=== PATIENT | male | born 1960 | race Caucasian/White ===

== ENCOUNTER 2020-12-16 23:04 | Emergency (ER) | payer MEDICAID ==
[~2020-12-16] VITALS: Ht 167.6 cm; Wt 84.1 kg
[2020-12-16] MEDS ORDERED: acetaminophen 325mg tablet PO STA (23:15)
[2020-12-17 01:14] VITALS: BP 135/111
== END 2020-12-17 01:41 | disposition home or self-care (01) ==
LOC: ER 23:05
DX: U07.1 COVID-19 (principal); R05 Cough
CPT/HCPCS: 71045; 87635; 99284; C9803

== ENCOUNTER 2020-12-20 04:30 | Inpatient (IN) | payer MEDICAID ==
[~2020-12-20] VITALS: Ht 165.1 cm; Wt 91.8 kg
[2020-12-20] MEDS ORDERED: ibuprofen 200mg tablet PO ONE (05:20)
[2020-12-20] MEDS ORDERED: dexamethasone sod phosphate 10mg/ml inj IV STA (05:53)
[2020-12-20 06:06] LABS: BASOPHILS % (AUTO) 0.4 % (0-1); EOSINOPHILS % (AUTO) 0.1 % (0-6); HEMATOCRIT 49.4 % (42.0-52.0); HEMOGLOBIN 17.1 g/dl (14.0-17.9); LYMPHOCYTES # (AUTO) 0.8 X10'3 (1.1-4.8); MEAN CORPUSCULAR HEMOGLOBIN 31.1 PG (27.0-31.0); MEAN CORPUSCULAR HGB CONC 34.7 g/dL (33.0-36.5); MEAN CORPUSCULAR VOLUME 89.8 FL (78-98); MEAN PLATELET VOLUME 10.6 FL (7.4-10.4); MONOCYTES # (AUTO) 0.5 X10'3 (0-0.9); MONOCYTES % (AUTO) 7.5 % (2-12); NEUTROPHILS # (AUTO) 5.4 X10'3 (1.8-7.7); PLATELET COUNT 135 X10'3 (140-440); RED CELL DISTRIBUTION WIDTH 14.1 % (11.5-14.5); WHITE BLOOD COUNT 6.8 X10'3 (4.5-11.0)
[2020-12-20 06:09] LABS: ALANINE AMINOTRANSFERASE 48 U/L (12-78); ALBUMIN 3.6 G/DL (3.4-5.0); ALBUMIN/GLOBULIN RATIO 0.8 (1.1-1.5); ALKALINE PHOSPHATASE 75 IU/L (46-116); ANION GAP 16 (8-16); ASPARTATE AMINO TRANSFERASE 117 U/L (10-37); BILIRUBIN,TOTAL 0.6 MG/DL (0.1-1.0); BLOOD UREA NITROGEN 47 MG/DL (7-18); BUN/CREATININE RATIO 17.7 (5.4-32.0); CALCIUM 8.1 MG/DL (8.5-10.1); CHLORIDE 101 MMOL/L (99-107); CREATININE 2.65 MG/DL (0.60-1.10); GLUCOSE 113 MG/DL (70-104); POTASSIUM 3.2 MMOL/L (3.5-5.1); SODIUM 138 MMOL/L (135-145); TOTAL CARBON DIOXIDE 21.3 MMOL/L (24-32); TOTAL PROTEIN 8.2 G/DL (6.4-8.2); eGFR 25 ML/MIN
[2020-12-20 06:13] LABS: TROPONIN I < 0.04 NG/ML (0.0-0.05)
[2020-12-20] MEDS ORDERED: normal saline 1000ml 1,000 ML IV ONE (06:15)
[2020-12-20 06:37] LABS: D-DIMER 0.54 MG/L FEU (0-0.50)
[2020-12-20] MEDS ORDERED: mag hydrox/Alum hydrox/simeth 30ml oral suspension PO PRN (07:20)
[2020-12-20] MEDS ORDERED: magnesium hydroxide 30ml (MOM) UD suspension PO PRN (07:20)
[2020-12-20] MEDS ORDERED: ondansetron/PF 4mg/2ml inj IV PRN (07:20)
[2020-12-20] MEDS ORDERED: acetaminophen 325mg tablet PO PRN (07:20)
[2020-12-20 07:52] LABS: C-REACTIVE PROTEIN 18.05 MG/DL (0.0-0.5); LACTATE DEHYDROGENASE 627 U/L (85-227)
[2020-12-20 07:58] LABS: LARGE PLATELETS FEW; PLATELET ESTIMATE DECREASED
[2020-12-20 08:05] LABS: FERRITIN 3230 NG/ML (26-388)
[2020-12-20] MEDS ORDERED: REMDESIVIR INJ 200 MG in normal saline 100ml IV soln 60 ML IV ONE (08:35)
[2020-12-20] MEDS: dexamethasone inj 6 MG in normal saline 50ml IV soln 50 ML IV SCH ×2 (09:10→20:39)
[2020-12-20] MEDS: normal saline 1000ml 1,000 ML IV SCH ×2 (09:10→20:39)
[2020-12-20] MEDS: enoxaparin 30mg/0.3ml syringe SQ SCH ×2 (09:11→20:38)
[2020-12-20] MEDS: docusate sod 100mg capsule PO SCH ×2 (09:12→20:38)
--- NOTE | 2020-12-20 10:30 | NUR ---
assumed care of pt from Yokasta VAN, pt is resting quietly on erlinda
--- NOTE | 2020-12-20 10:40 | NUR ---
PT BEING EVALUATED BY DR ZABALA
--- NOTE | 2020-12-20 11:00 | NUR ---
pt is resting quietly on bed, has urinal and water at bedside, resp even and unlabored, pt is on nasal cannula 2 liters, skin p/w/d, no chest pain/discomfort, waiting for bed assignment
--- NOTE | 2020-12-20 13:15 | NUR ---
pt sitting on edge of bed, using phone
--- NOTE | 2020-12-20 14:00 | NUR ---
pt resting quietly, resp even and unlabored, pulse ox 91% on 2 liters, increased to 4 liters
--- NOTE | 2020-12-20 14:57 | NUR ---
PT CONTINUES TO REST QUIETLY ON GURNEY, RESP EVEN AND UNLABORED, LUNGS CLEAR TO ASCULTATION BILATERALLY, SKIN P/W/D, TALKING FULL SENTENCES, PT ATE 90% OF LUNCH, AYUSH WELL, NO N/V, IV SITE IS PATENT AND CLEAR, USED URINAL, EMPTIED 200 ML OF YELLOW URINE
[2020-12-20] MEDS ORDERED: NO HOME MEDS (16:45)
--- NOTE | 2020-12-20 19:27 | NUR ---
pt is eating dinner, mamta well, no n/v
--- NOTE | 2020-12-20 20:00 | NUR ---
DR HOOPER AWARE PT IS ON 6LITERS NASAL CANNULA PULSE OX 89 TO 91%, SHE GAVE VERBAL ORDER FOR ABG
[2020-12-20 20:27] LABS: ABG BASE EXCESS -5.2 mmol/L (-2.0-2.0); ABG HCO3 16.9 mmol/L (22.0-26.0); ABG OXYGEN SATURATION 92.8 % (94-97); ABG PCO2 (T) 25.6 mmHg (35.0-48.0); ABG PO2 (T) 63.8 mmHg (75.0-100.0); ALLEN'S TEST POSITIVE; FCOHb 0.7 % (0.0-3.9); FLOW 6 L/min; FO2Hb 92.2 % (94-97)
--- NOTE | 2020-12-20 20:47 | NUR ---
pt continues to rest quietly on gurney, pt ate all the dinner, has water at bedside to drink, resp even and unlabored, skin p./w/d, talking full sentences, remains on 6 liters nasal cannula. IV is patent and clear
--- NOTE | 2020-12-20 23:50 | NUR ---
Received report from MOBILE EQUIPMENT OPERATORCARLOTA oHlly. Patient to follow shortly.
--- NOTE | 2020-12-21 00:30 | NUR ---
Patient arrived to unit from ER via W/C. Alert and oriented and in no apparent distress. Currently on 6 unit O2 via hi flow NC. Patient situated in bed and 2 RN skin check completed. Patient has no skin issues. Bed low/locked, SR x 2 and call light within reach.
[2020-12-21 00:40] VITALS: BP 130/79
[2020-12-21] MEDS: normal saline 1000ml 1,000 ML IV SCH ×2 (03:20→13:29)
[2020-12-21 05:00] VITALS: BP 104/29
--- NOTE | 2020-12-21 06:15 | NUR ---
Problems reprioritized. Patient report given, questions answered & plan of care reviewed with June VAN.
[2020-12-21 07:00] VITALS: BP 144/86
[2020-12-21] MEDS: docusate sod 100mg capsule PO SCH ×2 (07:43→20:48)
[2020-12-21] MEDS: dexamethasone inj 6 MG in normal saline 50ml IV soln 50 ML IV SCH ×2 (07:43→20:48)
[2020-12-21] MEDS: enoxaparin 30mg/0.3ml syringe SQ SCH ×2 (07:53→20:48)
[2020-12-21] MEDS: REMDESIVIR INJ 100 MG in normal saline 100ml IV soln 80 ML IV SCH (08:49)
--- NOTE | 2020-12-21 09:31 | NUR ---
Malnutrition consult: Pt admitted w/ +Covid and SOB. Per ED note, Pt has had decreased appetite but able to tolerated PO diet. No reported wt loss in EMR (current wt 88kg). No edema noted. Unable to perform NFPE d/t pt in isolation. Pt well developed and nourished per documentation. At this time pt does not meet minimum 2 criteria for malnutrition. Will continue to monitor. Addendum: 12/21/20 at [address] Amended: Links added.
[2020-12-21 09:56] LABS: BASOPHILS % (AUTO) 0.2 % (0-1); EOSINOPHILS % (AUTO) 0 % (0-6); HEMATOCRIT 43.4 % (42.0-52.0); HEMOGLOBIN 15.1 g/dl (14.0-17.9); LYMPHOCYTES # (AUTO) 0.5 X10'3 (1.1-4.8); MEAN CORPUSCULAR HEMOGLOBIN 30.6 PG (27.0-31.0); MEAN CORPUSCULAR HGB CONC 34.8 g/dL (33.0-36.5); MEAN CORPUSCULAR VOLUME 87.9 FL (78-98); MEAN PLATELET VOLUME 9.6 FL (7.4-10.4); MONOCYTES # (AUTO) 0.6 X10'3 (0-0.9); MONOCYTES % (AUTO) 11.8 % (2-12); NEUTROPHILS # (AUTO) 3.7 X10'3 (1.8-7.7); PLATELET COUNT 171 X10'3 (140-440); RED BLOOD COUNT 4.93 X10'6 (4.70-6.10); WHITE BLOOD COUNT 4.8 X10'3 (4.5-11.0)
[2020-12-21 10:15] LABS: ALANINE AMINOTRANSFERASE 60 U/L (12-78); ALBUMIN/GLOBULIN RATIO 0.7 (1.1-1.5); ALKALINE PHOSPHATASE 65 IU/L (46-116); ANION GAP 14 (8-16); ASPARTATE AMINO TRANSFERASE 97 U/L (10-37); BILIRUBIN,TOTAL 0.5 MG/DL (0.1-1.0); BLOOD UREA NITROGEN 36 MG/DL (7-18); BUN/CREATININE RATIO 28.6 (5.4-32.0); CALCIUM 7.9 MG/DL (8.5-10.1); CHLORIDE 110 MMOL/L (99-107); CREATININE 1.26 MG/DL (0.60-1.10); GLUCOSE 163 MG/DL (70-104); POTASSIUM 3.5 MMOL/L (3.5-5.1); SODIUM 145 MMOL/L (135-145); TOTAL CARBON DIOXIDE 21.2 MMOL/L (24-32); TOTAL PROTEIN 7.2 G/DL (6.4-8.2); eGFR 58 ML/MIN
[2020-12-21 12:30] VITALS: BP 129/70
[2020-12-21 14:39] LABS: D-DIMER 0.36 MG/L FEU (0-0.50)
[2020-12-21 16:00] VITALS: BP 119/66
--- NOTE | 2020-12-21 19:04 | NUR ---
Patient in room COVID 03. I have received report from June VAN and had the opportunity to ask questions and assume patient care.
--- NOTE | 2020-12-21 19:42 | NUR ---
Report given to Jayashree Chan, Pt in bed eating dinner. Saturating well on 7-8L high flow.
[2020-12-21 20:45] VITALS: BP 118/57
[2020-12-22] VITALS: BP 124/74
--- NOTE | 2020-12-22 06:43 | NUR ---
Problems reprioritized. Patient report given, questions answered & plan of care reviewed with Jie VAN.
[2020-12-22 07:00] VITALS: BP 162/86
[2020-12-22 07:53] LABS: BASOPHILS % (AUTO) 0.1 % (0-1); EOSINOPHILS % (AUTO) 0 % (0-6); LYMPHOCYTES # (AUTO) 0.6 X10'3 (1.1-4.8); MEAN PLATELET VOLUME 9.9 FL (7.4-10.4); MONOCYTES # (AUTO) 0.7 X10'3 (0-0.9)
[2020-12-22 07:55] LABS: HEMOGLOBIN 15.3 g/dl (14.0-17.9); LYMPHOCYTES % (AUTO) 8.4 % (21-51); MEAN CORPUSCULAR HEMOGLOBIN 30.7 PG (27.0-31.0); MEAN CORPUSCULAR VOLUME 90.4 FL (78-98); MONOCYTES % (AUTO) 10.1 % (2-12); NEUTROPHILS # (AUTO) 5.6 X10'3 (1.8-7.7); NEUTROPHILS % (AUTO) 81.4 % (42-75); PLATELET COUNT 201 X10'3 (140-440); RED BLOOD COUNT 4.97 X10'6 (4.70-6.10); RED CELL DISTRIBUTION WIDTH 14.2 % (11.5-14.5); WHITE BLOOD COUNT 6.9 X10'3 (4.5-11.0)
[2020-12-22 08:10] LABS: ALANINE AMINOTRANSFERASE 61 U/L (12-78); ALBUMIN 2.9 G/DL (3.4-5.0); ALBUMIN/GLOBULIN RATIO 0.7 (1.1-1.5); ALKALINE PHOSPHATASE 64 IU/L (46-116); ANION GAP 11 (8-16); ASPARTATE AMINO TRANSFERASE 85 U/L (10-37); BILIRUBIN,TOTAL 0.4 MG/DL (0.1-1.0); BLOOD UREA NITROGEN 30 MG/DL (7-18); BUN/CREATININE RATIO 26.8 (5.4-32.0); CALCIUM 8.2 MG/DL (8.5-10.1); CHLORIDE 113 MMOL/L (99-107); CREATININE 1.12 MG/DL (0.60-1.10); GLUCOSE 153 MG/DL (70-104); POTASSIUM 3.8 MMOL/L (3.5-5.1); SODIUM 148 MMOL/L (135-145); TOTAL CARBON DIOXIDE 23.8 MMOL/L (24-32); TOTAL PROTEIN 6.8 G/DL (6.4-8.2); eGFR 67 ML/MIN
[2020-12-22] MEDS: REMDESIVIR INJ 100 MG in normal saline 100ml IV soln 80 ML IV SCH (08:25)
[2020-12-22] MEDS: dexamethasone inj 6 MG in normal saline 50ml IV soln 50 ML IV SCH ×2 (08:25→20:04)
[2020-12-22] MEDS: enoxaparin 30mg/0.3ml syringe SQ SCH ×2 (08:26→20:18)
[2020-12-22] MEDS: docusate sod 100mg capsule PO SCH ×2 (08:26→20:18)
[2020-12-22 11:50] VITALS: BP 124/82
[2020-12-22 15:00] VITALS: BP 152/91
[2020-12-22 19:00] VITALS: BP 153/90
[2020-12-22] MEDS: cefepime 2g/NS 100ml ADVANTAGE 100 ML IV SCH (20:18)
[2020-12-22 22:45] VITALS: BP 138/88
[2020-12-23 03:15] VITALS: BP 144/81
--- NOTE | 2020-12-23 06:43 | NUR ---
Patient in room COVID 04. I have received report from Erin RN and had the opportunity to ask questions and assume patient care.
[2020-12-23 07:00] VITALS: BP 131/88
[2020-12-23] MEDS: docusate sod 100mg capsule PO SCH ×2 (08:54→19:52)
[2020-12-23] MEDS: dexamethasone inj 6 MG in normal saline 50ml IV soln 50 ML IV SCH ×2 (08:54→19:51)
[2020-12-23] MEDS: REMDESIVIR INJ 100 MG in normal saline 100ml IV soln 80 ML IV SCH (08:54)
[2020-12-23] MEDS: enoxaparin 30mg/0.3ml syringe SQ SCH ×2 (08:54→19:52)
[2020-12-23] MEDS: cefepime 2g/NS 100ml ADVANTAGE 100 ML IV SCH ×2 (08:54→19:51)
[2020-12-23 09:05] LABS: BASOPHILS % (AUTO) 0.1 % (0-1); EOSINOPHILS % (AUTO) 0 % (0-6); HEMATOCRIT 46.2 % (42.0-52.0); HEMOGLOBIN 15.6 g/dl (14.0-17.9); LYMPHOCYTES # (AUTO) 0.7 X10'3 (1.1-4.8); MEAN CORPUSCULAR HEMOGLOBIN 30.6 PG (27.0-31.0); MEAN CORPUSCULAR HGB CONC 33.7 g/dL (33.0-36.5); MEAN CORPUSCULAR VOLUME 90.6 FL (78-98); MEAN PLATELET VOLUME 9.8 FL (7.4-10.4); MONOCYTES # (AUTO) 0.8 X10'3 (0-0.9); MONOCYTES % (AUTO) 10.3 % (2-12); NEUTROPHILS # (AUTO) 6.7 X10'3 (1.8-7.7); NEUTROPHILS % (AUTO) 81.6 % (42-75); PLATELET COUNT 215 X10'3 (140-440); RED CELL DISTRIBUTION WIDTH 14.1 % (11.5-14.5); WHITE BLOOD COUNT 8.2 X10'3 (4.5-11.0)
[2020-12-23 09:38] LABS: ALANINE AMINOTRANSFERASE 67 U/L (12-78); ALBUMIN/GLOBULIN RATIO 0.7 (1.1-1.5); ALKALINE PHOSPHATASE 86 IU/L (46-116); ANION GAP 13 (8-16); ASPARTATE AMINO TRANSFERASE 68 U/L (10-37); BILIRUBIN,TOTAL 0.6 MG/DL (0.1-1.0); BLOOD UREA NITROGEN 29 MG/DL (7-18); BUN/CREATININE RATIO 27.6 (5.4-32.0); CALCIUM 8.4 MG/DL (8.5-10.1); CHLORIDE 110 MMOL/L (99-107); CREATININE 1.05 MG/DL (0.60-1.10); GLUCOSE 165 MG/DL (70-104); POTASSIUM 4.1 MMOL/L (3.5-5.1); SODIUM 148 MMOL/L (135-145); TOTAL CARBON DIOXIDE 25.2 MMOL/L (24-32); TOTAL PROTEIN 7.1 G/DL (6.4-8.2); eGFR 72 ML/MIN
[2020-12-23 09:41] LABS: LARGE PLATELETS FEW; PLATELET ESTIMATE NORMAL
[2020-12-23 10:00] VITALS: BP 138/58
--- NOTE | 2020-12-23 12:09 | NUR ---
Dr. villalpando to unit to see pt. new order for windy lomeli Q to assist pt with sleep. Pt encouraged to lay prone in bed.
[2020-12-23] MEDS ORDERED: zolpidem 5mg tablet PO PRN (12:10)
[2020-12-23 12:57] LABS: D-DIMER 0.61 MG/L FEU (0-0.50)
[2020-12-23 12:59] LABS: C-REACTIVE PROTEIN 1.57 MG/DL (0.0-0.5)
[2020-12-23 15:00] VITALS: BP 133/64
--- NOTE | 2020-12-23 18:35 | NUR ---
Problems reprioritized. Patient report given, questions answered & plan of care reviewed with Radha VAN. Pt sitting up at bedside finishing dinner. 6LPM HF NC> SPO2 95%. no s/sx acute distress
--- NOTE | 2020-12-23 18:57 | NUR ---
Patient in room COVID 04. I have received report from Josie VAN and had the opportunity to ask questions and assume patient care.
[2020-12-23 19:00] VITALS: BP 129/93
[2020-12-23] MEDS: lactobacillus rhamnosus 10,000 MMU CELLS/CAPSULE PO SCH (19:52)
[2020-12-23 23:00] VITALS: BP 138/85
[2020-12-24 03:00] VITALS: BP 109/66
--- NOTE | 2020-12-24 06:35 | NUR ---
Problems reprioritized. Patient report given, questions answered & plan of care reviewed with Clarissa VAN.
[2020-12-24] MEDS: docusate sod 100mg capsule PO SCH (07:53)
[2020-12-24] MEDS: REMDESIVIR INJ 100 MG in normal saline 100ml IV soln 80 ML IV SCH (07:53)
[2020-12-24] MEDS: enoxaparin 30mg/0.3ml syringe SQ SCH (07:53)
[2020-12-24] MEDS: lactobacillus rhamnosus 10,000 MMU CELLS/CAPSULE PO SCH (07:53)
[2020-12-24] MEDS: dexamethasone inj 6 MG in normal saline 50ml IV soln 50 ML IV SCH (07:55)
[2020-12-24 09:00] LABS: BASOPHILS % (AUTO) 0.1 % (0-1); EOSINOPHILS % (AUTO) 0 % (0-6); HEMATOCRIT 47.9 % (42.0-52.0); LYMPHOCYTES # (AUTO) 0.8 X10'3 (1.1-4.8); LYMPHOCYTES % (AUTO) 9.2 % (21-51); MEAN CORPUSCULAR HEMOGLOBIN 30.5 PG (27.0-31.0); MEAN CORPUSCULAR HGB CONC 33.5 g/dL (33.0-36.5); MEAN CORPUSCULAR VOLUME 90.9 FL (78-98); MEAN PLATELET VOLUME 9.9 FL (7.4-10.4); MONOCYTES # (AUTO) 0.7 X10'3 (0-0.9); MONOCYTES % (AUTO) 7.9 % (2-12); NEUTROPHILS # (AUTO) 7.3 X10'3 (1.8-7.7); NEUTROPHILS % (AUTO) 82.8 % (42-75); PLATELET COUNT 245 X10'3 (140-440); RED BLOOD COUNT 5.27 X10'6 (4.70-6.10); RED CELL DISTRIBUTION WIDTH 13.9 % (11.5-14.5); WHITE BLOOD COUNT 8.8 X10'3 (4.5-11.0)
[2020-12-24 09:28] LABS: ALANINE AMINOTRANSFERASE 74 U/L (12-78); ALBUMIN 2.9 G/DL (3.4-5.0); ALBUMIN/GLOBULIN RATIO 0.7 (1.1-1.5); ALKALINE PHOSPHATASE 59 IU/L (46-116); ANION GAP 13 (8-16); ASPARTATE AMINO TRANSFERASE 55 U/L (10-37); BILIRUBIN,TOTAL 0.7 MG/DL (0.1-1.0); BLOOD UREA NITROGEN 27 MG/DL (7-18); BUN/CREATININE RATIO 25.5 (5.4-32.0); C-REACTIVE PROTEIN 0.95 MG/DL (0.0-0.5); CALCIUM 8.3 MG/DL (8.5-10.1); CHLORIDE 109 MMOL/L (99-107); CREATININE 1.06 MG/DL (0.60-1.10); GLUCOSE 186 MG/DL (70-104); POTASSIUM 4.2 MMOL/L (3.5-5.1); SODIUM 144 MMOL/L (135-145); TOTAL CARBON DIOXIDE 22.1 MMOL/L (24-32); TOTAL PROTEIN 6.9 G/DL (6.4-8.2); eGFR 71 ML/MIN
[2020-12-24 10:00] VITALS: BP 114/72
--- NOTE | 2020-12-24 13:24 | NUR ---
Initial: Pt admit for acute respiratory failure with hypoxia, COVID PNA, and PING secondary to vasomotor nephropathy. Pt on a heart healthy diet with steadily declining PO intake, overall with average 64% PO intake throughout LOS not meeting estimated nutrient needs. Recommend Ensure Enlive TID to optimize PO intake. ONS to be sent pending MD approval in EMR. Recommend diet advancement to regular given no significant PMH, will d/w CARLOTA. RODRÍGUEZ 12/23, receiving routine bowel care. Will continue to follow closely and monitor need for further nutrition intervention. Recommendations: 1) Advance to regular diet in view of no PMH 2) Ensure Enlive TID, pending MD approval in EMR 3) Routine bowel care 4) Weekly scaled weights Addendum: 12/24/20 at [address] Amended: Links added.
[2020-12-24] MEDS ORDERED: DEC4T PO (13:59)
[2020-12-24] MEDS ORDERED: APIX5TAB3 PO (13:59)
--- NOTE | 2020-12-24 14:01 | NUR ---
O2 Sat at rest on room air:__86_% If below 89%: Recovery O2 Sat at rest on _3__LPM:_90__%:__94_% via___3l (mask/nasal cannula, etc..) No further documentation is necessary. If O2 Sat did not drop below 89% on room air,ambulate patient on room air. O2 Sat while ambulating on room air:___% Recovery O2 Sat while ambulating on ___LPM:___% No further documentation is necessary. If patient does not drop below 89% while ambulating, he/she does not qualify for home O2.
--- NOTE | 2020-12-24 16:13 | NUR ---
Spoke to pt's daughter who lives in [place]. She was wondering about home health for pt. Spoke to hospital social worker as well. Pt refusing home health at this time and is upset that daughter called to get involved. He requested that I take no more phone calls from her. Pt dc'd on oxygen per . Md did not order home health.
[2020-12-24] MEDS ORDERED: lactose-reduced food (Ensure Enlive) - 237ml bottle PO SCH (18:00)
== END 2020-12-24 16:05 | disposition home or self-care (01) | DRG 137 ==
LOC: ER 04:31 → ED HOLD 07:23 → COVID IP 12-21 00:30
PROVIDERS: ADMIT Family Medicine; ATTEND Family Medicine
PROC: XW033E5 Introduction of Remdesivir Anti-infective into Peripheral Vein, Percutaneous Approach, New Technology Group 5 (ICD-10-PCS; principal; 2020-12-20)
PROC: 5A0945A Assistance with Respiratory Ventilation, 24-96 Consecutive Hours, High Flow/Velocity Cannula (ICD-10-PCS; 2020-12-21)
DX: U07.1 COVID-19 (principal); J96.01 Acute respiratory failure with hypoxia; J12.82 Pneumonia due to coronavirus disease 2019; N17.0 Acute kidney failure with tubular necrosis; E66.01 Morbid (severe) obesity due to excess calories; R63.0 Anorexia; F41.9 Anxiety disorder, unspecified; Z68.33 Body mass index [BMI] 33.0-33.9, adult; Z79.01 Long term (current) use of anticoagulants
CPT/HCPCS: 36415; 36600; 71045; 80053; 82728; 82803; 83615; 84145; 84484; 85008; 85018; 85025; 85379; 85384; 86140; 87070; 87081; 93005; 94760; 96374; 99285; G0378; J0692; J1100; J1650; J7030

== ENCOUNTER 2022-10-11 09:12 | Inpatient (IN) | payer MEDICAID ==
[2022-10-06 12:35] LABS: BASOPHILS % (AUTO) 0.5 % (0-1); EOSINOPHILS # (AUTO) 0.1 X10'3 (0-0.9); EOSINOPHILS % (AUTO) 1.6 % (0-6); HEMATOCRIT 47.4 % (42.0-52.0); LYMPHOCYTES # (AUTO) 2.3 X10'3 (1.1-4.8); LYMPHOCYTES % (AUTO) 29.3 % (21-51); MEAN CORPUSCULAR HEMOGLOBIN 30.4 PG (27.0-31.0); MEAN CORPUSCULAR HGB CONC 33.8 g/dL (33.0-36.5); MEAN CORPUSCULAR VOLUME 90.1 FL (78-98); MEAN PLATELET VOLUME 9.9 FL (7.4-10.4); MONOCYTES # (AUTO) 0.9 X10'3 (0-0.9); MONOCYTES % (AUTO) 11.3 % (2-12); NEUTROPHILS # (AUTO) 4.5 X10'3 (1.8-7.7); NEUTROPHILS % (AUTO) 57.3 % (42-75); PLATELET COUNT 171 X10'3 (140-440); RED BLOOD COUNT 5.26 X10'6 (4.70-6.10); RED CELL DISTRIBUTION WIDTH 13.8 % (11.5-14.5); WHITE BLOOD COUNT 7.8 X10'3 (4.5-11.0)
[2022-10-06 12:42] LABS: ALANINE AMINOTRANSFERASE 20 U/L (12-78); ALBUMIN 4.3 G/DL (3.4-5.0); ALBUMIN/GLOBULIN RATIO 1.3 (1.1-1.5); ALKALINE PHOSPHATASE 84 IU/L (46-116); ANION GAP 9 (8-16); ASPARTATE AMINO TRANSFERASE 21 U/L (10-37); BILIRUBIN,TOTAL 1.1 MG/DL (0.1-1.0); BLOOD UREA NITROGEN 12 MG/DL (7-18); BUN/CREATININE RATIO 11.3 (10.0-20.0); CALCIUM 9.1 MG/DL (8.5-10.1); CHLORIDE 108 MMOL/L (99-107); CREATININE 1.06 MG/DL (0.60-1.10); GLUCOSE 107 MG/DL (70-104); POTASSIUM 4.1 MMOL/L (3.5-5.1); SODIUM 140 MMOL/L (135-145); TOTAL CARBON DIOXIDE 23.5 MMOL/L (24-32); TOTAL PROTEIN 7.7 G/DL (6.4-8.2); eGFR 71 ML/MIN
[2022-10-06 12:58] LABS: APTT 29 SECONDS (22-32)
[~2022-10-11] VITALS: Ht 165.1 cm; Wt 100.0 kg
[2022-10-11] VITALS (11 sets, daily range): BP systolic 112–136; BP diastolic 65–99
[~2022-10-11 09:12] MED LIST: APIX5TAB3 PO
[2022-10-11] MEDS ORDERED: diphenhydrAMINE 25mg capsule PO PRN (09:35)
[2022-10-11] MEDS: normal saline 1,000 ML IV SCH ×2 (09:35→20:04)
[2022-10-11] MEDS ORDERED: LORazepam 0.5 MG tablet PO PRN (09:35)
[2022-10-11] MEDS ORDERED: DILT-88 PO (09:55)
[2022-10-11] MEDS ORDERED: NAPR220C62 PO (09:55)
[2022-10-11] MEDS ORDERED: HYDR-3927 PO (09:55)
[2022-10-11] MEDS ORDERED: ROSU5TAB12 PO (09:55)
[2022-10-11] MEDS ORDERED: ASPI-1397 PO (09:55)
[2022-10-11] MEDS ORDERED: NITR0.4T51 SL (09:55)
[2022-10-11] MEDS ORDERED: nitroGLYCERIN 0.4mg SUBLingual tab SL PRN ×3 (10:25→16:00)
[2022-10-11] MEDS ORDERED: LIDOcaine 1% (10mg/ml)w/preservative inj. 20ml MDV ONE (13:39)
[2022-10-11] MEDS ORDERED: iohexol 350 MG/ML 50ML vial IV ONE (13:39)
[2022-10-11] MEDS ORDERED: iohexol 350MG/ML 100ml bottle IV ONE (13:39)
[2022-10-11] MEDS ORDERED: heparin 1,000 UNITS/NS 500ml 500 ML ONE (13:40)
[2022-10-11] MEDS ORDERED: fentaNYL/PF 50MCG/1 ML 2ML syringe ONE ×2 (13:43→14:00)
[2022-10-11] MEDS ORDERED: midazolam 1 mg/ML 2ml injection ONE ×2 (13:43→14:00)
[2022-10-11] MEDS: nitroGLYCERIN-Tridil 50MG/D5W 250 ML IV SCH (16:00)
[2022-10-11] MEDS ORDERED: naproxen sodium 220mg tablet PO PRN (17:30)
[2022-10-11] MEDS ORDERED: hydrOXYzine 25 MG tablet PO PRN (21:00)
[2022-10-12 03:00] VITALS: BP 137/80
[2022-10-12] MEDS: normal saline 1,000 ML IV SCH ×2 (05:52→22:09)
[2022-10-12 06:00] VITALS: BP 126/73
--- NOTE | 2022-10-12 06:15 | NUR ---
Patient in room PCU 3018. I have received report from Dalton VAN and had the opportunity to ask questions and assume patient care.Pt in bed. Denies needs. Anxious regarding upcoming surgery. Unknown date and time for CABG. call light in reach. Addendum: 10/12/22 at 0646 by Suma Harrell RN Amended: Links added.
--- NOTE | 2022-10-12 06:31 | NUR ---
Problems reprioritized. Patient report given, questions answered & plan of care reviewed with Suma VAN.
[2022-10-12] MEDS ORDERED: enoxaparin 40mg/0.4ml syringe SQ SCH (08:00)
[2022-10-12] MEDS ORDERED: ROSUVASTATIN CALCIUM 5 MG TABLET PO SCH (08:00)
[2022-10-12] MEDS ORDERED: diltiazem CD 120mg capsule (once-daily) PO SCH (08:00)
[2022-10-12] MEDS ORDERED: aspirin 81mg, enteric-coated 1 TAB TABLET.DR PO SCH (08:00)
[2022-10-12] MEDS ORDERED: magnesium hydroxide 30ml (MOM) UD suspension PO ONE (09:05)
[2022-10-12] MEDS: ALPRAZolam 0.25mg tablet PO PRN ×2 (09:56→22:10)
[2022-10-12 11:00] VITALS: BP 136/78
[2022-10-12 15:00] VITALS: BP 117/69
[2022-10-12] MEDS: nitroGLYCERIN-Tridil 50MG/D5W 250 ML IV SCH (16:00)
[2022-10-12] MEDS ORDERED: ringers solution, lacted 1,000 ML IV ONE (16:10)
[2022-10-12] MEDS ORDERED: MESSAGE TO NURSING PO ONE ×4 (16:45)
[2022-10-12 17:23] LABS: ABG BASE EXCESS -1.8 mmol/L (-2.0-2.0); ABG HCO3 21.4 mmol/L (22.0-26.0); ABG OXYGEN SATURATION 94.2 % (94-97); ABG PCO2 (T) 32.8 mmHg (35.0-48.0); ALLEN'S TEST POSITIVE; FCOHb 0.8 % (0.0-3.9); FMetHb 0.2 % (0.0-1.5); FO2Hb 93.3 % (94-97); TOTAL HEMOGLOBIN 15.8 G/dl (14.0-17.9)
[2022-10-12 18:00] VITALS: BP 116/68
--- NOTE | 2022-10-12 18:20 | NUR ---
Problems reprioritized. Patient report given, questions answered & plan of care reviewed with Dalton VAN. Addendum: 10/13/22 at 0623 by Suma Harrell RN Amended: Links added.
[2022-10-13] VITALS (21 sets, daily range): BP systolic 96–129; BP diastolic 49–85
[2022-10-13] MEDS: normal saline 1,000 ML IV SCH (01:35)
[2022-10-13] MEDS ORDERED: insulin glargine (Lantus) pen - multi-dose SQ PRN ×2 (05:30→13:55)
[2022-10-13] MEDS ORDERED: mupirocin 2% nasal ointment 1gm UD NS SCH (05:30)
[2022-10-13] MEDS ORDERED: VANCOMYCIN 1,500MG inj. 1,500 MG in normal saline 500ml IV soln 300 ML IV ONE (05:30)
[2022-10-13] MEDS ORDERED: ceFAZolin inj. 2,000 MG in dextrose 5%-water 100 ML IV ONE (05:30)
[2022-10-13] MEDS ORDERED: dextrose 50%-water 50ml dispensing syringe IV PRN ×2 (05:30→13:55)
[2022-10-13] MEDS ORDERED: MALTODEXTRIN/FRUCTOSE 0.68 KCAL/ML LIQUID 296ML BOTTLE PO ONE (05:30)
[2022-10-13 06:00] LABS: MEAN CORPUSCULAR HEMOGLOBIN 30.8 PG (27.0-31.0)
[2022-10-13] MEDS ORDERED: gabapentin 400mg capsule PO ONE (06:00)
[2022-10-13] MEDS ORDERED: famotidine/PF 10 mg/ml inj IV ONE (06:00)
[2022-10-13] MEDS ORDERED: LORazepam 2 mg/ml vial IV ONE (06:00)
[2022-10-13 06:01] LABS: BASOPHILS % (AUTO) 0.6 % (0-1); EOSINOPHILS # (AUTO) 0.2 X10'3 (0-0.9); EOSINOPHILS % (AUTO) 3.3 % (0-6); HEMATOCRIT 43.7 % (42.0-52.0); HEMOGLOBIN 14.9 g/dl (14.0-17.9); LYMPHOCYTES # (AUTO) 1.6 X10'3 (1.1-4.8); LYMPHOCYTES % (AUTO) 28.4 % (21-51); MEAN CORPUSCULAR HGB CONC 34.2 g/dL (33.0-36.5); MEAN PLATELET VOLUME 10.7 FL (7.4-10.4); MONOCYTES # (AUTO) 0.7 X10'3 (0-0.9); MONOCYTES % (AUTO) 12.3 % (2-12); NEUTROPHILS # (AUTO) 3.2 X10'3 (1.8-7.7); NEUTROPHILS % (AUTO) 55.4 % (42-75); PLATELET COUNT 161 X10'3 (140-440); RED BLOOD COUNT 4.85 X10'6 (4.70-6.10); RED CELL DISTRIBUTION WIDTH 13.6 % (11.5-14.5); WHITE BLOOD COUNT 5.7 X10'3 (4.5-11.0)
[2022-10-13 06:02] LABS: ALBUMIN 3.5 G/DL (3.4-5.0); ANION GAP 10 (8-16); BLOOD UREA NITROGEN 14 MG/DL (7-18); BUN/CREATININE RATIO 13.6 (10.0-20.0); CALCIUM 8.4 MG/DL (8.5-10.1); CHLORIDE 107 MMOL/L (99-107); CREATININE 1.03 MG/DL (0.60-1.10); GLUCOSE 91 MG/DL (70-104); POTASSIUM 3.7 MMOL/L (3.5-5.1); SODIUM 138 MMOL/L (135-145); eGFR 73 ML/MIN
[2022-10-13] MEDS ORDERED: BUPIVAcaine 0.5% inj/PF 30 ML ONE (06:30)
[2022-10-13] MEDS ORDERED: ceFAZolin 1000mg inj ONE (06:30)
[2022-10-13] MEDS ORDERED: epiNEPHrine 1 mg/ml inj ONE (06:30)
--- NOTE | 2022-10-13 06:33 | NUR ---
Problems reprioritized. Patient report given, questions answered & plan of care reviewed with Stew VANchargeback specialist nurse.
[2022-10-13] MEDS ORDERED: heparin 10,000 units/1 ML INJ ONE ×2 (06:54→08:00)
[2022-10-13] MEDS ORDERED: ringers solution, lacted 1,000 ML IV SCH (07:00)
[2022-10-13] MEDS ORDERED: MIDAZolam 1mg/ml 10ml vial ONE (07:21)
[2022-10-13] MEDS ORDERED: fentaNYL /PF 50mcg/ml 5ml ampule ONE ×2 (07:21)
[2022-10-13] MEDS ORDERED: propofol inj 20 ML IV ONE (07:23)
[2022-10-13] MEDS ORDERED: LIDOcaine 2% (20mg/ml) 5ml vial ONE (07:23)
[2022-10-13] MEDS ORDERED: rocuronium 10mg/ml inj IV ONE ×3 (07:24→09:16)
[2022-10-13] MEDS ORDERED: sevoflurane 250ml liquid IH ONE (07:55)
[2022-10-13] MEDS ORDERED: NORepinephrine 8 MG in NS 250 ML BAG (32 mcg/ml) IV ONE (07:55)
[2022-10-13] MEDS ORDERED: nitroGLYCERIN in D5W 50mg/250ml (Tridil) infusion IV ONE (07:55)
[2022-10-13] MEDS ORDERED: MESSAGE TO PHARMACY IJ ONE (08:00)
[2022-10-13] MEDS ORDERED: potassium Cl 2 mEq/ml inj IV ONE (08:00)
[2022-10-13] MEDS ORDERED: aminocaproic acid 250 MG/1 ML inj. ONE (08:00)
[2022-10-13] MEDS ORDERED: LIDOcaine 2% (20 mg/ml) 5ml cardiac syringe ONE (08:00)
[2022-10-13] MEDS ORDERED: NORepinephrine bitart. inj. IV ONE (08:00)
[2022-10-13] MEDS ORDERED: metoprolol tartrate 12.5mg (1/2 tablet) PO SCH (08:00)
[2022-10-13] MEDS ORDERED: methylPREDNISolone sod succ 1000mg vial ONE (08:00)
[2022-10-13] MEDS ORDERED: magnesium 1 GM/2 ML inj ONE (08:00)
[2022-10-13] MEDS ORDERED: sodium bicarbonate (8.4%) 1 mEq/ml syringe ONE (08:00)
[2022-10-13] MEDS ORDERED: mannitol 12.5gm/50mL VIAL IV ONE (08:00)
[2022-10-13] MEDS ORDERED: albumin (human) 25% 100 ML IV solution IV ONE (08:00)
[2022-10-13] MEDS ORDERED: heparin 1,000 units/ml 10ml inj ONE (08:00)
[2022-10-13] MEDS ORDERED: calcium chloride 100 MG/1 ML inj IV ONE (08:00)
[2022-10-13 09:02] LABS: ABG BASE EXCESS -5.1 mmol/L (-2.0-2.0); ABG HCO3 18.7 mmol/L (22.0-26.0); ABG OXYGEN SATURATION 96.9 % (94-97); ABG PCO2 32.1 mmHg (35.0-48.0); ABG PO2 86.7 mmHg (75.0-100.0); CL (ABG) 105 mmol/L (99-107); FCOHb 0.9 % (0.0-3.9); FMetHb 0.3 % (0.0-1.5); FO2Hb 95.7 % (94-97); GLUCOSE (ABG) 115 mg/dl (70-104); IONIZED CA (ABG) 1.13 mmol/L (1.10-1.30); K (ABG) 4.2 mmol/L (3.5-5.1); TOTAL HEMOGLOBIN 15.5 G/dl (14.0-17.9)
[2022-10-13] MEDS ORDERED: ePHEDrine 50MG/ML INJ. ONE (09:16)
[2022-10-13] MEDS ORDERED: MESSAGE TO NURSING PO ONE ×2 (10:00)
[2022-10-13] MEDS ORDERED: BUPIVAcaine 0.5% inj/PF 30 ml vial IJ ONE (10:05)
[2022-10-13 10:48] LABS: ABG BASE EXCESS -3.1 mmol/L (-2.0-2.0); ABG HCO3 21.2 mmol/L (22.0-26.0); ABG OXYGEN SATURATION 99.4 % (94-97); ABG PCO2 35.3 mmHg (35.0-48.0); ABG PO2 217.4 mmHg (75.0-100.0); CL (ABG) 104 mmol/L (99-107); FCOHb 0.4 % (0.0-3.9); FMetHb 0.3 % (0.0-1.5); FO2Hb 98.7 % (94-97); GLUCOSE (ABG) 123 mg/dl (70-104); IONIZED CA (ABG) 0.97 mmol/L (1.10-1.30); K (ABG) 5.2 mmol/L (3.5-5.1); TOTAL HEMOGLOBIN 11.4 G/dl (14.0-17.9)
[2022-10-13 11:23] LABS: ABG BASE EXCESS VENOUS -0.2 mmol/L (-2.0 - 2.0); ABG PO2 VENOUS 48.8 mmHg (25.0-35.0); CL (ABG) 104 mmol/L (99-107); FCOHb VENOUS 0.8 %; FHHb VENOUS 16.3 %; FMetHb VENOUS 0.3 % (0.0 - 0.5); FO2Hb VENOUS 82.6 %; GLUCOSE (ABG) 149 mg/dl (70-104); IONIZED CA (ABG) 1.02 mmol/L (1.10-1.30); K (ABG) 5.4 mmol/L (3.5-5.1); TOTAL HEMOGLOBIN 12.3 G/dl (14.0-17.9)
[2022-10-13 11:56] LABS: ABG BASE EXCESS -3.3 mmol/L (-2.0-2.0); ABG HCO3 21.7 mmol/L (22.0-26.0); ABG OXYGEN SATURATION 98.9 % (94-97); ABG PCO2 39.2 mmHg (35.0-48.0); ABG PO2 142.2 mmHg (75.0-100.0); CL (ABG) 104 mmol/L (99-107); FCOHb 0.6 % (0.0-3.9); FMetHb 0.3 % (0.0-1.5); GLUCOSE (ABG) 188 mg/dl (70-104); IONIZED CA (ABG) 1.03 mmol/L (1.10-1.30); TOTAL HEMOGLOBIN 12.1 G/dl (14.0-17.9)
[2022-10-13 12:33] LABS: ABG BASE EXCESS -2.9 mmol/L (-2.0-2.0); ABG HCO3 22.9 mmol/L (22.0-26.0); ABG OXYGEN SATURATION 99.5 % (94-97); ABG PCO2 44.1 mmHg (35.0-48.0); ABG PO2 322.6 mmHg (75.0-100.0); CL (ABG) 101 mmol/L (99-107); FCOHb 0.5 % (0.0-3.9); FMetHb 0.3 % (0.0-1.5); FO2Hb 98.7 % (94-97); GLUCOSE (ABG) 189 mg/dl (70-104); IONIZED CA (ABG) 1.31 mmol/L (1.10-1.30); K (ABG) 5.8 mmol/L (3.5-5.1); TOTAL HEMOGLOBIN 11.5 G/dl (14.0-17.9)
[2022-10-13 13:00] LABS: ABG BASE EXCESS VENOUS -11.9 mmol/L (-2.0 - 2.0); ABG HCO3 VENOUS 13.2 mmol/L (21.0-28.0); ABG PO2 VENOUS 43.2 mmHg (25.0-35.0); CL (ABG) 105 mmol/L (99-107); FCOHb VENOUS 1.1 %; FHHb VENOUS 21.7 %; FMetHb VENOUS 0.3 % (0.0 - 0.5); FO2Hb VENOUS 76.9 %; GLUCOSE (ABG) 105 mg/dl (70-104); IONIZED CA (ABG) 1.04 mmol/L (1.10-1.30); K (ABG) 4.3 mmol/L (3.5-5.1); TOTAL HEMOGLOBIN 7.3 G/dl (14.0-17.9)
[2022-10-13 13:04] LABS: ABG BASE EXCESS -3.7 mmol/L (-2.0-2.0); ABG HCO3 21.9 mmol/L (22.0-26.0); ABG OXYGEN SATURATION 99.8 % (94-97); ABG PCO2 41.5 mmHg (35.0-48.0); ABG PO2 492.3 mmHg (75.0-100.0); CL (ABG) 104 mmol/L (99-107); FCOHb 0.5 % (0.0-3.9); FMetHb 0.3 % (0.0-1.5); GLUCOSE (ABG) 175 mg/dl (70-104); IONIZED CA (ABG) 1.17 mmol/L (1.10-1.30); TOTAL HEMOGLOBIN 12.5 G/dl (14.0-17.9)
[2022-10-13] MEDS ORDERED: Neutra Phos packet PO PRN (13:55)
[2022-10-13] MEDS ORDERED: sodium phosphate inj. 30 MMOL in dextrose 5%-water 250 ML IV PRN (13:55)
[2022-10-13] MEDS ORDERED: potassium Cl 40MEQ/1/2NS 520ml 520 ML IV PRN (13:55)
[2022-10-13] MEDS ORDERED: nitroGLYCERIN-Tridil 50MG/D5W 250 ML IV PRN ×2 (13:55→14:02)
[2022-10-13] MEDS ORDERED: potassium Cl 20mEq/100mL bag 100 ML IV PRN (13:55)
[2022-10-13] MEDS ORDERED: magnesium 2GM in 50ml NS 50 ML IV PRN (13:55)
[2022-10-13] MEDS ORDERED: sodium phosphate inj. 15 MMOL in dextrose 5%-water 250 ML IV PRN (13:55)
[2022-10-13] MEDS ORDERED: potassium Cl 20 mEq SR tablet PO PRN (13:55)
[2022-10-13] MEDS ORDERED: Insulin Reg/NS 100units/100mL 100 ML IV SCH (13:55)
[2022-10-13] MEDS ORDERED: morphine 4 MG/ML inj SYRINge IV PRN (13:55)
[2022-10-13] MEDS ORDERED: potassium Cl 40MEQ/270ML bag 250 ML IV PRN (13:55)
[2022-10-13] MEDS ORDERED: bisacodyl 10mg suppository rectal RC PRN (13:55)
[2022-10-13] MEDS ORDERED: potassium CL 10mEq/100ml bag 100 ML IV PRN (13:55)
[2022-10-13] MEDS ORDERED: niCARDipine-NS 40mg/200ml IVPB 200 ML IV PRN (13:55)
[2022-10-13] MEDS ORDERED: DOPamine 400mg/D5W 250ml 250 ML IV PRN (13:55)
[2022-10-13] MEDS ORDERED: magnesium 4gm in 100ml NS 100 ML IV PRN (13:55)
[2022-10-13] MEDS ORDERED: morphine 2 MG/ML inj. syringe IV PRN (13:55)
[2022-10-13] MEDS ORDERED: metoclopramide 5 mg/ml inj IV PRN (13:55)
[2022-10-13] MEDS ORDERED: mineral oil 133ml enema RC PRN (13:55)
[2022-10-13] MEDS ORDERED: normal saline 250ml IV soln 250 ML IV PRN (13:55)
[2022-10-13] MEDS ORDERED: magnesium hydroxide 30ml (MOM) UD suspension PO PRN (13:55)
[2022-10-13] MEDS ORDERED: acetaminophen 325mg tablet PO PRN ×2 (13:55)
--- NOTE | 2022-10-13 14:00 | NUR ---
Received to room 2043, accompanied by Giovanni Rojas and surgical crew. Placed on ventilator, to sheet finisher, arterial line and PA line pressure zeroed & monitored. Chest tubes to suction at 20 cm. Wilson cath to gravity drainage. Dressings are dry and intact. See assessment record. All vasoactive drugs are infusing via central line.
[2022-10-13 14:38] LABS: ABG BASE EXCESS -3.3 mmol/L (-2.0-2.0); ABG HCO3 22.4 mmol/L (22.0-26.0); ABG OXYGEN SATURATION 95.9 % (94-97); ABG PCO2 (T) 41.6 mmHg (35.0-48.0); ABG PO2 (T) 88.8 mmHg (75.0-100.0); FCOHb 0.4 % (0.0-3.9); FMetHb 0.2 % (0.0-1.5); FO2Hb 95.3 % (94-97); PATIENT TEMPERATURE 36.6; PEEP 5 cm H2O; RESPIRATORY RATE 12 b/min; TIDAL VOLUME 600 mL; TOTAL HEMOGLOBIN 15.8 G/dl (14.0-17.9)
--- NOTE | 2022-10-13 14:45 | NUR ---
Nutrition consult: Per EMR pt remains intubated s/p CABG x 4 today. Pt would benefit from nutrition therapy education as appropriate following extubation. Will continue to follow. Addendum: 10/13/22 at [address] Amended: Links added.
[2022-10-13 14:57] LABS: APTT 29 SECONDS (22-32)
[2022-10-13 14:59] LABS: ALANINE AMINOTRANSFERASE 16 U/L (12-78); ALBUMIN 3.1 G/DL (3.4-5.0); ALBUMIN/GLOBULIN RATIO 1.2 (1.1-1.5); ALKALINE PHOSPHATASE 63 IU/L (46-116); ANION GAP 11 (8-16); ASPARTATE AMINO TRANSFERASE 42 U/L (10-37); BILIRUBIN,TOTAL 1.2 MG/DL (0.1-1.0); BLOOD UREA NITROGEN 14 MG/DL (7-18); BUN/CREATININE RATIO 13.7 (10.0-20.0); CALCIUM 8.2 MG/DL (8.5-10.1); CHLORIDE 106 MMOL/L (99-107); CREATININE 1.02 MG/DL (0.60-1.10); GLUCOSE 180 MG/DL (70-104); MAGNESIUM 3.1 MG/DL (1.5-2.4); PHOSPHORUS 2.8 MG/DL (2.3-4.5); SODIUM 142 MMOL/L (135-145); TOTAL CARBON DIOXIDE 24.8 MMOL/L (24-32); TOTAL PROTEIN 5.7 G/DL (6.4-8.2); eGFR 74 ML/MIN
[2022-10-13 15:01] LABS: POTASSIUM 4.3 MMOL/L (3.5-5.1)
[2022-10-13 15:08] LABS: BASOPHILS % (AUTO) 0.1 % (0-1); EOSINOPHILS % (AUTO) 0.1 % (0-6); HEMATOCRIT 44.9 % (42.0-52.0); HEMOGLOBIN 15.1 g/dl (14.0-17.9); LYMPHOCYTES # (AUTO) 1.2 X10'3 (1.1-4.8); LYMPHOCYTES % (AUTO) 5.5 % (21-51); MEAN CORPUSCULAR HEMOGLOBIN 30.2 PG (27.0-31.0); MEAN CORPUSCULAR HGB CONC 33.7 g/dL (33.0-36.5); MEAN CORPUSCULAR VOLUME 89.5 FL (78-98); MEAN PLATELET VOLUME 10.8 FL (7.4-10.4); MONOCYTES # (AUTO) 1.2 X10'3 (0-0.9); MONOCYTES % (AUTO) 5.3 % (2-12); NEUTROPHILS # (AUTO) 19.8 X10'3 (1.8-7.7); PLATELET COUNT 176 X10'3 (140-440); RED BLOOD COUNT 5.01 X10'6 (4.70-6.10); RED CELL DISTRIBUTION WIDTH 13.5 % (11.5-14.5); WHITE BLOOD COUNT 22.2 X10'3 (4.5-11.0)
--- NOTE | 2022-10-13 15:15 | NUR ---
OG Pts OG air injection heard in oral cavity, on return of stomach content. X-ray reports in stomach. Advanced x 10cm with immediate return of light green output. Air injectate heard over stomach now.
[2022-10-13] MEDS: ceFAZolin/D5W- 1GM premix 50 ML IV SCH (16:44)
[2022-10-13] MEDS: sodium chloride 0.45% 1,000 ML IV SCH (16:45)
[2022-10-13] MEDS: Insulin Reg/NS 100units/100mL 100 ML IV SCH (16:47)
[2022-10-13] MEDS: milrinone (Primacor) 20mg/D5W 100 ML IV SCH ×2 (17:37→19:41)
[2022-10-13] MEDS: NORepinephrine 8mg/ 250ml NS 250 ML IV SCH ×2 (17:38→22:15)
--- NOTE | 2022-10-13 18:20 | NUR ---
Patient in room ICU 2043. I have received report from Levy VAN and had the opportunity to ask questions and assume patient care.
--- NOTE | 2022-10-13 18:27 | NUR ---
Problems reprioritized. Patient report given, questions answered & plan of care reviewed with Deanna VAN.
[2022-10-13] MEDS: albumin (Human) 5% 250ml 250 ML IV PRN ×2 (19:14→20:55)
[2022-10-13 19:38] LABS: HEMOGLOBIN A1C 5.7 % (4.5-6.2)
--- NOTE | 2022-10-13 20:16 | NUR ---
Spoke with Dr Quiroga with following change in orders: #1 Turn FiO2 down to 40%, #2 Turn Milronone down to 0.125mcg/kg/min, #3 give 2nd bottle 5% Albumin, #4 Make sure pt is sitting up, #5 start SBT. Changes made as ordered.
[2022-10-13 20:50] LABS: ALBUMIN 3.2 G/DL (3.4-5.0); ANION GAP 11 (8-16); BLOOD UREA NITROGEN 13 MG/DL (7-18); BUN/CREATININE RATIO 9.5 (10.0-20.0); CALCIUM 8.2 MG/DL (8.5-10.1); CHLORIDE 109 MMOL/L (99-107); CREATININE 1.37 MG/DL (0.60-1.10); GLUCOSE 169 MG/DL (70-104); MAGNESIUM 2.4 MG/DL (1.5-2.4); PHOSPHORUS 1.7 MG/DL (2.3-4.5); POTASSIUM 4.1 MMOL/L (3.5-5.1); SODIUM 143 MMOL/L (135-145); TOTAL CARBON DIOXIDE 22.7 MMOL/L (24-32); eGFR 52 ML/MIN
[2022-10-13] MEDS: vancomycin/NS 1 GM ADD-VANTAGE 250 ML IV SCH (20:54)
[2022-10-13] MEDS: mupirocin 2% nasal ointment 1gm UD NS SCH (20:56)
[2022-10-13] MEDS: sennosides/docusate sodium tablet PO SCH (20:56)
[2022-10-13] MEDS: atorvastatin 10mg tablet PO SCH (20:57)
[2022-10-13] MEDS: gabapentin 300mg capsule PO SCH (20:57)
[2022-10-13 20:58] LABS: BASOPHILS % (AUTO) 0.1 % (0-1); EOSINOPHILS % (AUTO) 0 % (0-6); HEMATOCRIT 42.9 % (42.0-52.0); HEMOGLOBIN 14.6 g/dl (14.0-17.9); LYMPHOCYTES # (AUTO) 0.6 X10'3 (1.1-4.8); LYMPHOCYTES % (AUTO) 4.3 % (21-51); MEAN CORPUSCULAR HEMOGLOBIN 30.1 PG (27.0-31.0); MEAN CORPUSCULAR VOLUME 88.5 FL (78-98); MEAN PLATELET VOLUME 10.9 FL (7.4-10.4); MONOCYTES # (AUTO) 0.7 X10'3 (0-0.9); NEUTROPHILS # (AUTO) 13.5 X10'3 (1.8-7.7); NEUTROPHILS % (AUTO) 90.6 % (42-75); PLATELET COUNT 181 X10'3 (140-440); RED BLOOD COUNT 4.85 X10'6 (4.70-6.10); RED CELL DISTRIBUTION WIDTH 13.9 % (11.5-14.5); WHITE BLOOD COUNT 14.9 X10'3 (4.5-11.0)
[2022-10-13 21:41] LABS: ABG BASE EXCESS -0.8 mmol/L (-2.0-2.0); ABG OXYGEN SATURATION 92.8 % (94-97); ABG PCO2 (T) 34.8 mmHg (35.0-48.0); ABG PO2 (T) 62.7 mmHg (75.0-100.0); FCOHb 0.4 % (0.0-3.9); FMetHb 0.1 % (0.0-1.5); FO2Hb 92.3 % (94-97); PATIENT TEMPERATURE 36.6; PEEP 5 cm H2O; TOTAL HEMOGLOBIN 14.3 G/dl (14.0-17.9)
--- NOTE | 2022-10-13 21:47 | NUR ---
ABG done after SBT period. PaO2 62.7. FiO2 increased to 50%. Pt remains drowsy.
[2022-10-14] VITALS (24 sets, daily range): BP systolic 89–129; BP diastolic 51–66
[2022-10-14] MEDS: ceFAZolin/D5W- 1GM premix 50 ML IV SCH ×3 (00:25→16:13)
--- NOTE | 2022-10-14 00:36 | NUR ---
Pt extubated at 2357 to 6L NC.
--- NOTE | 2022-10-14 00:55 | NUR ---
O2 sats 89-90% on 6L, changed to 12L O2 on Salter HFNC with increase in sats to 93%. Pt remains drowsy/ sleeping after extubation.
[2022-10-14 02:31] LABS: BASOPHILS % (AUTO) 0.1 % (0-1); EOSINOPHILS % (AUTO) 0 % (0-6); HEMATOCRIT 37.8 % (42.0-52.0); LYMPHOCYTES # (AUTO) 0.8 X10'3 (1.1-4.8); LYMPHOCYTES % (AUTO) 5.4 % (21-51); MEAN CORPUSCULAR HEMOGLOBIN 30.3 PG (27.0-31.0); MEAN CORPUSCULAR HGB CONC 34.4 g/dL (33.0-36.5); MEAN PLATELET VOLUME 9.9 FL (7.4-10.4); MONOCYTES # (AUTO) 0.7 X10'3 (0-0.9); MONOCYTES % (AUTO) 4.8 % (2-12); NEUTROPHILS # (AUTO) 13.1 X10'3 (1.8-7.7); NEUTROPHILS % (AUTO) 89.7 % (42-75); PLATELET COUNT 132 X10'3 (140-440); RED BLOOD COUNT 4.29 X10'6 (4.70-6.10); RED CELL DISTRIBUTION WIDTH 13.7 % (11.5-14.5); WHITE BLOOD COUNT 14.6 X10'3 (4.5-11.0)
[2022-10-14 02:42] LABS: APTT 27 SECONDS (22-32)
[2022-10-14 02:48] LABS: ALANINE AMINOTRANSFERASE 22 U/L (12-78); ALBUMIN 3.2 G/DL (3.4-5.0); ALBUMIN/GLOBULIN RATIO 1.3 (1.1-1.5); ALKALINE PHOSPHATASE 53 IU/L (46-116); ANION GAP 9 (8-16); ASPARTATE AMINO TRANSFERASE 60 U/L (10-37); BILIRUBIN,TOTAL 0.6 MG/DL (0.1-1.0); BLOOD UREA NITROGEN 13 MG/DL (7-18); BUN/CREATININE RATIO 11.1 (10.0-20.0); CHLORIDE 109 MMOL/L (99-107); CREATININE 1.17 MG/DL (0.60-1.10); GLUCOSE 172 MG/DL (70-104); MAGNESIUM 2.7 MG/DL (1.5-2.4); PHOSPHORUS 2.6 MG/DL (2.3-4.5); POTASSIUM 4.2 MMOL/L (3.5-5.1); SODIUM 142 MMOL/L (135-145); TOTAL CARBON DIOXIDE 24.5 MMOL/L (24-32); TOTAL PROTEIN 5.7 G/DL (6.4-8.2); eGFR 63 ML/MIN
[2022-10-14] MEDS: ondansetron/PF 4mg/2ml inj IV PRN ×2 (03:16→13:28)
[2022-10-14] MEDS ORDERED: potassium Cl 40MEQ/270ML bag 270 ML IV PRN (04:17)
--- NOTE | 2022-10-14 06:07 | NUR ---
Problems reprioritized. Patient report given, questions answered & plan of care reviewed with Jacob VAN.
[2022-10-14] MEDS: sennosides/docusate sodium tablet PO SCH ×2 (07:38→20:39)
[2022-10-14] MEDS: gabapentin 300mg capsule PO SCH ×2 (07:39→13:28)
[2022-10-14] MEDS: mupirocin 2% nasal ointment 1gm UD NS SCH ×2 (07:39→20:49)
[2022-10-14] MEDS: aspirin 81mg tab.chew PO SCH (07:57)
[2022-10-14] MEDS ORDERED: metoprolol tartrate 12.5mg (1/2 tablet) PO SCH (08:00)
[2022-10-14] MEDS: vancomycin/NS 1 GM ADD-VANTAGE 250 ML IV SCH ×2 (08:44→20:39)
[2022-10-14] MEDS: Insulin Reg/NS 100units/100mL 100 ML IV SCH (10:27)
--- NOTE | 2022-10-14 17:30 | NUR ---
Dr Ruiz called for update on pt. Reviewed vitals, the days events, and current medications. Metoprolol held, gabapentin discontinued, it was requested for CVP to be rezeroed and transduced. CVP at phlebostatic access is 14.
--- NOTE | 2022-10-14 18:10 | NUR ---
Patient in room ICU 2043. I have received report from Jacob VAN and had the opportunity to ask questions and assume patient care.
--- NOTE | 2022-10-14 18:30 | NUR ---
Problems reprioritized. Patient report given, questions answered & plan of care reviewed with CARLOTA Nava.
[2022-10-14] MEDS: NORepinephrine 8mg/ 250ml NS 250 ML IV SCH (18:35)
[2022-10-14] MEDS: HYDROcodone/acetaminophen 10/325mg tab PO PRN (18:36)
[2022-10-14] MEDS ORDERED: dextrose 50%-water 50ml dispensing syringe IV PRN ×2 (20:20)
[2022-10-14] MEDS ORDERED: DEXTROSE 15 GM of carb/4 tabs (each vial/BOTTLE has 4 tablets) PO PRN ×2 (20:20)
--- NOTE | 2022-10-14 20:30 | NUR ---
MD Quiroga called to be updated on patient's status. MD given patient's current hourly urine output, BP, SR, and CVP. New order received.
[2022-10-14] MEDS: atorvastatin 10mg tablet PO SCH (20:39)
[2022-10-14] MEDS ORDERED: DOBUTamine-DoBUTrex 500mg/D5W 250 ML IV SCH (20:40)
[2022-10-14] MEDS: insulin glargine (Lantus) pen - multi-dose SQ SCH (20:48)
[2022-10-14] MEDS ORDERED: furosemide 20 MG/2 ML vial IV ONE (22:55)
[2022-10-15] VITALS (24 sets, daily range): BP systolic 89–129; BP diastolic 58–76
[2022-10-15] MEDS: ceFAZolin/D5W- 1GM premix 50 ML IV SCH (01:06)
[2022-10-15 04:13] LABS: ALBUMIN 3.2 G/DL (3.4-5.0); ANION GAP 8 (8-16); BLOOD UREA NITROGEN 20 MG/DL (7-18); BUN/CREATININE RATIO 17.7 (10.0-20.0); CALCIUM 8.1 MG/DL (8.5-10.1); CHLORIDE 105 MMOL/L (99-107); CREATININE 1.13 MG/DL (0.60-1.10); GLUCOSE 174 MG/DL (70-104); MAGNESIUM 2.1 MG/DL (1.5-2.4); PHOSPHORUS 2.9 MG/DL (2.3-4.5); POTASSIUM 4.6 MMOL/L (3.5-5.1); SODIUM 141 MMOL/L (135-145); TOTAL CARBON DIOXIDE 27.6 MMOL/L (24-32); eGFR 66 ML/MIN
[2022-10-15 04:15] LABS: BASOPHILS % (AUTO) 0 % (0-1); EOSINOPHILS % (AUTO) 0 % (0-6); HEMATOCRIT 35.5 % (42.0-52.0); LYMPHOCYTES # (AUTO) 0.9 X10'3 (1.1-4.8); LYMPHOCYTES % (AUTO) 5.2 % (21-51); MEAN CORPUSCULAR HEMOGLOBIN 30.3 PG (27.0-31.0); MEAN CORPUSCULAR HGB CONC 33.8 g/dL (33.0-36.5); MEAN CORPUSCULAR VOLUME 89.8 FL (78-98); MEAN PLATELET VOLUME 10.7 FL (7.4-10.4); MONOCYTES # (AUTO) 1.3 X10'3 (0-0.9); MONOCYTES % (AUTO) 7.5 % (2-12); NEUTROPHILS % (AUTO) 87.3 % (42-75); RED BLOOD COUNT 3.95 X10'6 (4.70-6.10); RED CELL DISTRIBUTION WIDTH 13.9 % (11.5-14.5); WHITE BLOOD COUNT 17.2 X10'3 (4.5-11.0)
[2022-10-15 05:35] LABS: PLATELET COUNT 113 X10'3 (140-440)
[2022-10-15] MEDS: NORepinephrine 8mg/ 250ml NS 250 ML IV SCH ×2 (06:00→19:20)
--- NOTE | 2022-10-15 06:23 | NUR ---
Problems reprioritized. Patient report given, questions answered & plan of care reviewed with Teresita VAN.
[2022-10-15] MEDS: sennosides/docusate sodium tablet PO SCH ×2 (07:44→20:36)
[2022-10-15] MEDS: aspirin 81mg tab.chew PO SCH (07:45)
[2022-10-15] MEDS: HYDROcodone/acetaminophen 10/325mg tab PO PRN ×3 (07:45→23:26)
[2022-10-15] MEDS: pantoprazole 40mg Tablet.DR PO SCH (07:45)
[2022-10-15] MEDS: mupirocin 2% nasal ointment 1gm UD NS SCH (07:48)
--- NOTE | 2022-10-15 08:13 | NUR ---
Abdulaziz Maguire in to see pt.
[2022-10-15] MEDS: insulin Lispro (HumaLOG) vial - multi-dose SQ SCH ×3 (08:29→17:53)
--- NOTE | 2022-10-15 08:45 | NUR ---
Chest Tube #2 dc'd per Zoila Maguire.
[2022-10-15] MEDS: ondansetron/PF 4mg/2ml inj IV PRN (10:15)
--- NOTE | 2022-10-15 12:09 | NUR ---
Initial: Pt post-op day 2 s/p CABGx4 per EMR. Pt extubated 10/13 at 2357 advanced to NCS diet PO 0-25% first meals not meeting estimated needs. Pt seen by RD at bedside for written/verbal heart healthy/high protein diet eds w/ RD contact information provided. Pt reports appetite back to baseline PO 100% breakfast this AM confirmed by PO documentation in EMR. Pt agreeable to any ONS recommend Blu smoothie BIDBD given current intake for wound healing needs; PA notified. If current PO trends persist on regular diet will meet estimated needs. LBM 10/10 receiving routine senna-s though pt reports does not want to have BM on bedside commode prefers more private setting. Will monitor for further PO trends and further nutrition intervention needs. Rec: 1. continue NCS diet per MD 2. Blu smoothie BIDBD for wound healing; monitor PO trends for ONS adjustment needs 3. routine bowel care 4. scaled wt this admit; subsequent weekly wt Addendum: 10/15/22 at [address] Amended: Links added.
[2022-10-15] MEDS: sodium chloride 0.45% 1,000 ML IV SCH (13:55)
--- NOTE | 2022-10-15 13:57 | NUR ---
Dr. Beltran in to see pt. Pt. ambulated with RN for second time today. VSS. No c/o.
[2022-10-15] MEDS: JUVEN Smoothie Arginine/Glut./Ca2+Bmb (Juven 19.3pkt) 240ml cup PO SCH (17:30)
--- NOTE | 2022-10-15 18:15 | NUR ---
Patient in room ICU 2043. I have received report from Teresita VAN and had the opportunity to ask questions and assume patient care.
[2022-10-15] MEDS: atorvastatin 10mg tablet PO SCH (20:36)
[2022-10-15] MEDS: insulin glargine (Lantus) pen - multi-dose SQ SCH (20:47)
[2022-10-16] VITALS (20 sets, daily range): BP systolic 89–126; BP diastolic 57–84
[2022-10-16] MEDS: HYDROcodone/acetaminophen 10/325mg tab PO PRN ×3 (05:26→19:52)
[2022-10-16 05:53] LABS: BASOPHILS % (AUTO) 0.1 % (0-1); EOSINOPHILS % (AUTO) 0.1 % (0-6); HEMATOCRIT 34.9 % (42.0-52.0); HEMOGLOBIN 11.8 g/dl (14.0-17.9); LYMPHOCYTES # (AUTO) 1.9 X10'3 (1.1-4.8); LYMPHOCYTES % (AUTO) 13.5 % (21-51); MEAN CORPUSCULAR HEMOGLOBIN 30.3 PG (27.0-31.0); MEAN CORPUSCULAR VOLUME 89.3 FL (78-98); MONOCYTES # (AUTO) 1.6 X10'3 (0-0.9); MONOCYTES % (AUTO) 11.2 % (2-12); NEUTROPHILS # (AUTO) 10.6 X10'3 (1.8-7.7); NEUTROPHILS % (AUTO) 75.1 % (42-75); PLATELET COUNT 120 X10'3 (140-440); RED CELL DISTRIBUTION WIDTH 13.8 % (11.5-14.5); WHITE BLOOD COUNT 14.1 X10'3 (4.5-11.0)
[2022-10-16 06:01] LABS: ALBUMIN 3.1 G/DL (3.4-5.0); ANION GAP 9 (8-16); BLOOD UREA NITROGEN 20 MG/DL (7-18); BUN/CREATININE RATIO 18.2 (10.0-20.0); CALCIUM 8.2 MG/DL (8.5-10.1); CHLORIDE 106 MMOL/L (99-107); GLUCOSE 117 MG/DL (70-104); MAGNESIUM 1.6 MG/DL (1.5-2.4); POTASSIUM 4.1 MMOL/L (3.5-5.1); SODIUM 143 MMOL/L (135-145); eGFR 68 ML/MIN
--- NOTE | 2022-10-16 06:11 | NUR ---
Problems reprioritized. Patient report given, questions answered & plan of care reviewed with Teresita VAN.
[2022-10-16] MEDS ORDERED: magnesium 4gm in 100ml NS 100 ML IV PRN (07:30)
[2022-10-16] MEDS ORDERED: potassium Cl 20mEq/100mL bag 100 ML IV PRN (07:30)
[2022-10-16] MEDS: pantoprazole 40mg Tablet.DR PO SCH (07:30)
[2022-10-16] MEDS ORDERED: potassium Cl 20 mEq SR tablet PO PRN ×2 (07:30)
[2022-10-16] MEDS ORDERED: potassium Cl 40MEQ/270ML bag 250 ML IV PRN (07:30)
[2022-10-16] MEDS ORDERED: potassium Cl 40MEQ/1/2NS 520ml 520 ML IV PRN (07:30)
[2022-10-16] MEDS ORDERED: magnesium 2GM in 50ml NS 50 ML IV PRN (07:30)
[2022-10-16] MEDS ORDERED: potassium CL 10mEq/100ml bag 100 ML IV PRN (07:30)
[2022-10-16] MEDS: sennosides/docusate sodium tablet PO SCH ×2 (07:30→19:52)
[2022-10-16] MEDS: JUVEN Smoothie Arginine/Glut./Ca2+Bmb (Juven 19.3pkt) 240ml cup PO SCH ×2 (07:30→17:42)
[2022-10-16] MEDS: aspirin 81mg tab.chew PO SCH (07:31)
[2022-10-16 07:42] LABS: ACT @ 1.70 U 278 SEC (193-297); ACT @ 2.84 U 380 SEC (260-420); BASELINE ACT 131 SEC (101-148)
[2022-10-16] MEDS: magnesium Cl slow-release 64mg tablet PO SCH ×2 (07:56→19:52)
[2022-10-16] MEDS: heparin, porcine 5000 units/ml vial SQ SCH ×2 (07:57→19:51)
--- NOTE | 2022-10-16 08:18 | NUR ---
CABG Consult: Addressed; see prior RD note. Addendum: 10/16/22 at [address] Amended: Links added.
[2022-10-16 08:51] LABS: ACT @ 1.70 U 371 SEC (193-297); ACT @ 2.84 U 591 SEC (260-420); BASELINE ACT 150 SEC (101-148)
--- NOTE | 2022-10-16 10:34 | NUR ---
Case management called to assess pt. for rehab as he lives alone and wants rehab.
--- NOTE | 2022-10-16 10:35 | NUR ---
CARLOTA Rodríguez from Case Management informed by RN that pt. needs rehab.
--- NOTE | 2022-10-16 11:41 | NUR ---
Pt. ambulated with PT.
--- NOTE | 2022-10-16 12:51 | NUR ---
RN paged case management coordinator Anne to come speak with pt. as pt. has many questions re. rehab, equipment for home. etc. Anne at bedside.
--- NOTE | 2022-10-16 12:54 | NUR ---
2nd chest tube dc'd this morning per Padma. Ting VILLANUEVA.
--- NOTE | 2022-10-16 14:13 | NUR ---
Patient in room ICU 2043. I have received report from Teresita and had the opportunity to ask questions and assume patient care, awaiting pt to unit Addendum: 10/16/22 at 1414 by Pedro Luis Franklin RN Amended: Links added.
--- NOTE | 2022-10-16 14:34 | NUR ---
Pt. to room 3009 via w/c with all belongings in stable condition after giving phone report to Nurse Pedro Luis. Pt. hooked up to bedside monitor and given call light. RN notified social staff worker Gary of pt's arrival. VSS at arrival. Pt. in chair.
--- NOTE | 2022-10-16 14:56 | NUR ---
Pt oriented to room, sitting in chair. VSS stable, pain free. Unit routine reviewed, questions answered. Call light reviewed, in reach, will monitor
--- NOTE | 2022-10-16 16:37 | NUR ---
Walked 600 feet around unit, sob with exertion, o2 increased to 4L for walk. No assistive devives needed, good gait. Demonstrated good use of IS x10, 1500 ml, states understanding
--- NOTE | 2022-10-16 17:12 | NUR ---
[place] documentation: I have reviewed and agree with all interventions, assessments performed and documented by Pedro Luis VAN. [place] Medication Administration: For this medication-pass time frame, all medication were reviewed, dispensed, administered and documented per hospital policy by Pedro Luis VAN.
--- NOTE | 2022-10-16 18:09 | NUR ---
Problems reprioritized. Patient report given, questions answered & plan of care reviewed with Jeniffer VAN. Patient up to chair for dinner. Patient in no acute distress.
--- NOTE | 2022-10-16 18:22 | NUR ---
Problems reprioritized. Patient report given, questions answered & plan of care reviewed with Addendum: 10/16/22 at 1823 by Pedro Luis Franklin RN Amended: Links added.
--- NOTE | 2022-10-16 18:45 | NUR ---
Patient in room PCU 3009. I have received report from Shadia VAN and had the opportunity to ask questions and assume patient care.
[2022-10-16] MEDS: atorvastatin 10mg tablet PO SCH (19:56)
[2022-10-16] MEDS: insulin glargine (Lantus) pen - multi-dose SQ SCH (21:00)
[2022-10-17 02:00] VITALS: BP 107/65
[2022-10-17] MEDS: HYDROcodone/acetaminophen 10/325mg tab PO PRN ×2 (04:59→19:11)
[2022-10-17 06:13] LABS: HEMATOCRIT 36.8 % (42.0-52.0); HEMOGLOBIN 12.3 g/dl (14.0-17.9); MEAN CORPUSCULAR HEMOGLOBIN 30.5 PG (27.0-31.0); MEAN CORPUSCULAR HGB CONC 33.5 g/dL (33.0-36.5); MEAN CORPUSCULAR VOLUME 90.9 FL (78-98); PLATELET COUNT 152 X10'3 (140-440); RED BLOOD COUNT 4.05 X10'6 (4.70-6.10); WHITE BLOOD COUNT 10.1 X10'3 (4.5-11.0)
[2022-10-17 06:14] LABS: BASOPHILS % (AUTO) 0.1 % (0-1); EOSINOPHILS # (AUTO) 0.1 X10'3 (0-0.9); EOSINOPHILS % (AUTO) 1.3 % (0-6); LYMPHOCYTES # (AUTO) 1.7 X10'3 (1.1-4.8); LYMPHOCYTES % (AUTO) 17.2 % (21-51); MEAN PLATELET VOLUME 10.6 FL (7.4-10.4); MONOCYTES # (AUTO) 1.2 X10'3 (0-0.9); MONOCYTES % (AUTO) 11.4 % (2-12); NEUTROPHILS # (AUTO) 7.1 X10'3 (1.8-7.7)
--- NOTE | 2022-10-17 06:15 | NUR ---
Problems reprioritized. Patient report given, questions answered & plan of care reviewed with Pedro Luis & Linette VAN.
[2022-10-17 06:18] LABS: ALBUMIN 3.1 G/DL (3.4-5.0); ANION GAP 6 (8-16); BLOOD UREA NITROGEN 19 MG/DL (7-18); BUN/CREATININE RATIO 16.5 (10.0-20.0); CALCIUM 8.6 MG/DL (8.5-10.1); CHLORIDE 104 MMOL/L (99-107); CREATININE 1.15 MG/DL (0.60-1.10); GLUCOSE 117 MG/DL (70-104); POTASSIUM 4.2 MMOL/L (3.5-5.1); SODIUM 140 MMOL/L (135-145); TOTAL CARBON DIOXIDE 29.8 MMOL/L (24-32); eGFR 64 ML/MIN
[2022-10-17 06:30] VITALS: BP 115/71
--- NOTE | 2022-10-17 06:33 | NUR ---
Patient in room U 3009. I have received report from Jeniffer VAN and had the opportunity to ask questions and assume patient care.Patient resting in chair in no acute distress.
--- NOTE | 2022-10-17 06:37 | NUR ---
Patient in room U 3009. I have received report from Jeniffer and had the opportunity to ask questions and assume patient care. In recliner, no needs at this time Addendum: 10/17/22 at 0638 by Pedro Luis Franklin RN Amended: Links added.
[2022-10-17] MEDS: aspirin 81mg tab.chew PO SCH (07:47)
[2022-10-17] MEDS: magnesium Cl slow-release 64mg tablet PO SCH ×2 (07:47→19:10)
[2022-10-17] MEDS: pantoprazole 40mg Tablet.DR PO SCH (07:47)
[2022-10-17] MEDS: sennosides/docusate sodium tablet PO SCH ×2 (07:47→19:38)
[2022-10-17] MEDS: JUVEN Smoothie Arginine/Glut./Ca2+Bmb (Juven 19.3pkt) 240ml cup PO SCH ×2 (07:48→17:38)
[2022-10-17] MEDS: heparin, porcine 5000 units/ml vial SQ SCH ×2 (07:48→19:10)
[2022-10-17 08:23] LABS: LARGE PLATELETS FEW; PLATELET ESTIMATE NORMAL
[2022-10-17] MEDS: clopidogrel 75mg tablet PO SCH (09:29)
--- NOTE | 2022-10-17 09:43 | NUR ---
Pt walked 1200 feet, on RA, sats ranged between 92 and 94% on RA, less fatigue than last walk. States no pain or sob. Good sternal splinting. States he has concers over multiple stairs at home, that he has nearly fallen on in the past, as well as the kvng of his bed.
[2022-10-17] MEDS ORDERED: magnesium citrate 296ml oral solution PO ONE (10:50)
[2022-10-17 11:15] VITALS: BP 113/69
--- NOTE | 2022-10-17 16:00 | NUR ---
Pt walked 1500 feet around the unit, on RA. Denies sob, o2 sat 96%, HR 110-118, but under 100 at rest. Denies any pain, states he is having less sternal pain every daily
[2022-10-17 18:00] VITALS: BP 116/77
--- NOTE | 2022-10-17 18:07 | NUR ---
Problems reprioritized. Patient report given, questions answered & plan of care reviewed with Lynne VAN.
[2022-10-17] MEDS: insulin glargine (Lantus) pen - multi-dose SQ SCH (21:00)
[2022-10-17] MEDS: atorvastatin 10mg tablet PO SCH (21:41)
[2022-10-17 21:47] VITALS: BP 113/75
[2022-10-18 01:56] VITALS: BP 106/70
--- NOTE | 2022-10-18 06:00 | NUR ---
Patient in room U 3009. I have received report from Soledad and had the opportunity to ask questions and assume patient care. Addendum: 10/18/22 at 1111 by Pedro Luis Franklin RN Amended: Links added.
--- NOTE | 2022-10-18 06:34 | NUR ---
Problems reprioritized. Patient report given, questions answered & plan of care reviewed with CARLOTA Gomes.
--- NOTE | 2022-10-18 06:56 | NUR ---
Patient in room PCU 3009. I have received report from Lynne VAN and had the opportunity to ask questions and assume patient care.
[2022-10-18 06:57] LABS: BASOPHILS % (AUTO) 0.2 % (0-1); EOSINOPHILS # (AUTO) 0.3 X10'3 (0-0.9); EOSINOPHILS % (AUTO) 2.8 % (0-6); HEMOGLOBIN 12.6 g/dl (14.0-17.9); LYMPHOCYTES # (AUTO) 1.9 X10'3 (1.1-4.8); LYMPHOCYTES % (AUTO) 19.4 % (21-51); MEAN CORPUSCULAR HEMOGLOBIN 30.8 PG (27.0-31.0); MEAN CORPUSCULAR HGB CONC 34.1 g/dL (33.0-36.5); MEAN CORPUSCULAR VOLUME 90.3 FL (78-98); MEAN PLATELET VOLUME 9.9 FL (7.4-10.4); MONOCYTES # (AUTO) 1.1 X10'3 (0-0.9); MONOCYTES % (AUTO) 10.8 % (2-12); NEUTROPHILS # (AUTO) 6.6 X10'3 (1.8-7.7); NEUTROPHILS % (AUTO) 66.8 % (42-75); PLATELET COUNT 206 X10'3 (140-440); RED BLOOD COUNT 4.09 X10'6 (4.70-6.10); RED CELL DISTRIBUTION WIDTH 13.9 % (11.5-14.5); WHITE BLOOD COUNT 9.9 X10'3 (4.5-11.0)
[2022-10-18 06:58] LABS: ANION GAP 11 (8-16); BLOOD UREA NITROGEN 20 MG/DL (7-18); BUN/CREATININE RATIO 17.7 (10.0-20.0); CALCIUM 8.8 MG/DL (8.5-10.1); CHLORIDE 103 MMOL/L (99-107); CREATININE 1.13 MG/DL (0.60-1.10); GLUCOSE 108 MG/DL (70-104); POTASSIUM 3.8 MMOL/L (3.5-5.1); SODIUM 139 MMOL/L (135-145); TOTAL CARBON DIOXIDE 25.5 MMOL/L (24-32); eGFR 66 ML/MIN
[2022-10-18 07:10] VITALS: BP 112/71
[2022-10-18] MEDS: pantoprazole 40mg Tablet.DR PO SCH (07:27)
[2022-10-18] MEDS: magnesium Cl slow-release 64mg tablet PO SCH (07:27)
[2022-10-18] MEDS: aspirin 81mg tab.chew PO SCH (07:27)
[2022-10-18] MEDS: clopidogrel 75mg tablet PO SCH (07:27)
[2022-10-18] MEDS: heparin, porcine 5000 units/ml vial SQ SCH (07:28)
[2022-10-18] MEDS: sennosides/docusate sodium tablet PO SCH (07:29)
[2022-10-18] MEDS: JUVEN Smoothie Arginine/Glut./Ca2+Bmb (Juven 19.3pkt) 240ml cup PO SCH (07:55)
--- NOTE | 2022-10-18 09:16 | NUR ---
Walked 1500 feet, no sob, no pain, states he feels stronger every day
--- NOTE | 2022-10-18 10:47 | NUR ---
well versed in sternal protection and adls Addendum: 10/18/22 at 1049 by Pedro Luis Franklin RN Amended: Links added.
[2022-10-18 11:00] VITALS: BP 118/74
--- NOTE | 2022-10-18 12:46 | NUR ---
Report called to Ilana at [facility], questions answered
== END 2022-10-18 14:25 | DRG 166 ==
LOC: SSTAY O 09:12 → PCU 3S 14:30 → ICU 2S 10-13 08:13 → PCU 3S 10-16 14:30
PROVIDERS: ADMIT Internal Medicine Cardiovascular Disease; ATTEND Internal Medicine Cardiovascular Disease
PROC: 4A023N7 Measurement of Cardiac Sampling and Pressure, Left Heart, Percutaneous Approach (ICD-10-PCS; 2022-10-11)
PROC: B2111ZZ Fluoroscopy of Multiple Coronary Arteries using Low Osmolar Contrast (ICD-10-PCS; 2022-10-11)
PROC: B2151ZZ Fluoroscopy of Left Heart using Low Osmolar Contrast (ICD-10-PCS; 2022-10-11)
PROC: B41F1ZZ Fluoroscopy of Right Lower Extremity Arteries using Low Osmolar Contrast (ICD-10-PCS; 2022-10-11)
PROC: B3111ZZ Fluoroscopy of Right Brachiocephalic-Subclavian Artery using Low Osmolar Contrast (ICD-10-PCS; 2022-10-11)
PROC: B3121ZZ Fluoroscopy of Left Subclavian Artery using Low Osmolar Contrast (ICD-10-PCS; 2022-10-11)
PROC: 021209W Bypass Coronary Artery, Three Arteries from Aorta with Autologous Venous Tissue, Open Approach (ICD-10-PCS; 2022-10-13)
PROC: 5A1221Z Performance of Cardiac Output, Continuous (ICD-10-PCS; 2022-10-13)
PROC: 06BQ4ZZ Excision of Left Saphenous Vein, Percutaneous Endoscopic Approach (ICD-10-PCS; 2022-10-13)
PROC: B24BZZ4 Ultrasonography of Heart with Aorta, Transesophageal (ICD-10-PCS; 2022-10-13)
PROC: 02HV33Z Insertion of Infusion Device into Superior Vena Cava, Percutaneous Approach (ICD-10-PCS; 2022-10-13)
PROC: B548ZZA Ultrasonography of Superior Vena Cava, Guidance (ICD-10-PCS; 2022-10-13)
PROC: 03HY32Z Insertion of Monitoring Device into Upper Artery, Percutaneous Approach (ICD-10-PCS; 2022-10-13)
PROC: B34HZZZ Ultrasonography of Right Upper Extremity Arteries (ICD-10-PCS; 2022-10-13)
PROC: 02100Z9 Bypass Coronary Artery, One Artery from Left Internal Mammary, Open Approach (ICD-10-PCS; principal; 2022-10-13 07:55)
PROC: 5A0935A Assistance with Respiratory Ventilation, Less than 24 Consecutive Hours, High Flow/Velocity Cannula (ICD-10-PCS; 2022-10-14)
PROC: 5A0935A Assistance with Respiratory Ventilation, Less than 24 Consecutive Hours, High Flow/Velocity Cannula (ICD-10-PCS; 2022-10-15)
DX: I25.119 Atherosclerotic heart disease of native coronary artery with unspecified angina pectoris (principal); Z99.81 Dependence on supplemental oxygen; E66.9 Obesity, unspecified; Z60.2 Problems related to living alone; F41.1 Generalized anxiety disorder; E78.5 Hyperlipidemia, unspecified; I10 Essential (primary) hypertension; Z68.36 Body mass index [BMI] 36.0-36.9, adult; Z86.16 Personal history of COVID-19; Z79.899 Other long term (current) drug therapy; Z79.82 Long term (current) use of aspirin
CPT/HCPCS: 0232T; 36415; 36600; 71045; 71046; 71250; 80048; 80053; 82330; 82435; 82803; 82947; 82948; 83036; 83735; 83880; 84100; 84132; 84295; 84484; 85008; 85018; 85025; 85347; 85384; 85610; 85730; 86885; 86900; 86901; 86920; 87070; 87081; 92508; 92616; 93005; 93306; 93312; 93325; 93458; 93880; 93970; 94002; 94010; 94668; 94760; 97116; 97162; 97530; 99152; 99153; A4615; A4618; A6213; A6258; A6446; A6449; A7000; A7048; C1751; C1760; G0378; J0171; J0690; J1250; J1644; J1650; J1815; J1940; J2060; J2150; J2250; J2260; J2270; J2405; J2704; J2930; J3010; J3370; J3475; J3480; J3490; J7030; J7040; J7050; J7060; J7120; P9045; P9047; Q9967; S0020